=== PATIENT | male | born 1990 | race Caucasian/White ===

== ENCOUNTER 2016-07-12 05:17 | Inpatient (IN) | payer OTHER ==
[~2016-07-12] VITALS: Ht 180.3 cm; Wt 87.1 kg
[2016-07-12] MEDS ORDERED: SODIUM CHLORIDE FLUSH 10ML SYR IVF ONE (05:30)
[2016-07-12] MEDS ORDERED: NALOXONE 1 MG/ML, 2ML ONE (05:42)
[2016-07-12] MEDS ORDERED: NALOXONE 1 MG/ML, 2ML IVPush ONE (06:00)
[2016-07-12] MEDS ORDERED: ONDANSETRON 2MG/ML, 2ML ONE (06:07)
[2016-07-12 06:08] LABS: BLOOD UREA NITROGEN 14 mg/dL (7-18)
[2016-07-12] MEDS: SODIUM CHLORIDE 0.9% IV SCH ×4 (06:24→11:34)
[2016-07-12] MEDS: NALOXONE IV SCH ×4 (06:24→11:34)
[2016-07-12] MEDS ORDERED: ONDANSETRON 2MG/ML, 2ML IVPush ONE (06:30)
[2016-07-12] MEDS ORDERED: ACETAMINOPHEN 325 MG TABLET PO PRN (10:00)
[2016-07-12] MEDS ORDERED: ONDANSETRON 2MG/ML, 2ML IVPush PRN (10:00)
[2016-07-12] MEDS ORDERED: POLYETHYLENE GLYCOL 17 GM PACKET PO PRN (10:00)
[2016-07-12] MEDS ORDERED: NALOXONE 0.2 MG in SODIUM CHLORIDE 0.9% 1,000 ML IV SCH (10:30)
[2016-07-12] MEDS: SODIUM CHLORIDE 0.9% 1,000 ML IV SCH ×2 (11:30→16:06)
[2016-07-12] MEDS: ENOXAPARIN 40 MG/0.4 ML SQ SCH (11:31)
[2016-07-12 15:22] LABS: DAU SCREEN DISCLAIMER
[2016-07-12] MEDS ORDERED: ATROPINE SYRINGE 0.1 MG/ML, 10ML IVPush PRN (16:30)
[2016-07-12 17:13] LABS: ASPARTATE AMINO TRANSFERASE 22 U/L (15-37); BLOOD UREA NITROGEN 13 mg/dL (7-18)
[2016-07-12 17:20] LABS: IS PT STATUS REG ER OR PRE ER? NO
[2016-07-12] MEDS: NALOXONE 0.4 MG in SODIUM CHLORIDE 0.9% 1,000 ML IV SCH (19:19)
[2016-07-13 03:29] LABS: ASPARTATE AMINO TRANSFERASE 19 U/L (15-37); BLOOD UREA NITROGEN 15 mg/dL (7-18)
[2016-07-13] MEDS: SODIUM CHLORIDE 0.9% 1,000 ML IV SCH (03:34)
[2016-07-13 04:00] VITALS: BP 112/58
[2016-07-13] MEDS: NALOXONE 0.4 MG in SODIUM CHLORIDE 0.9% 1,000 ML IV SCH (04:29)
[2016-07-13] MEDS ORDERED: SENNA/DOCUSATE TABLET PO SCH (09:00)
[2016-07-13] MEDS: ENOXAPARIN 40 MG/0.4 ML SQ SCH (11:00)
== END 2016-07-13 12:25 | disposition home or self-care (01) | DRG 917 ==
LOC: ED 07:16 → EDIP 10:00 → CCU 10:31
DX: T40.601A Poisoning by unspecified narcotics, accidental (unintentional), initial encounter (principal); J96.01 Acute respiratory failure with hypoxia; I10 Essential (primary) hypertension; F12.90 Cannabis use, unspecified, uncomplicated; F17.210 Nicotine dependence, cigarettes, uncomplicated; Z82.49 Family history of ischemic heart disease and other diseases of the circulatory system; Y92.89 Other specified places as the place of occurrence of the external cause
CPT/HCPCS: 36415; 71010; 80048; 80053; 80307; 82040; 83735; 84100; 84484; 85025; 87081; 93005; 96365; 96366; 96375; 96376; J1650; J2310; J2405; J7030